=== PATIENT | female | born 1955 | race Caucasian/White ===

== ENCOUNTER 2023-03-03 12:50 | Outpatient (CLI) | payer MEDICAID, MEDICARE | END 2023-03-03 23:59 | disposition short-term general hospital (02) | LOC: EMS 12:50 | DX: M25.552 Pain in left hip (principal); R42 Dizziness and giddiness; W18.39XA Other fall on same level, initial encounter; Y92.009 Unspecified place in unspecified non-institutional (private) residence as the place of occurrence of the external cause | CPT/HCPCS: A0425; A0429; A0999 ==